=== PATIENT | female | born 1970 | race Caucasian/White ===

== ENCOUNTER 2017-03-19 07:01 | Emergency (ER) | payer OTHER, MEDICAID ==
[~2017-03-19] VITALS: Ht 157.5 cm; Wt 101.5 kg
[~2017-03-19 07:01] MED LIST: BENAZEPRIL; CRESTOR; CYMBALTA
[2017-03-19] MEDS ORDERED: IBUPROFEN 600MG TABLET PO ONE (09:15)
[2017-03-19 09:28] VITALS: BP 122/68
== END 2017-03-19 09:29 | disposition home or self-care (01) ==
LOC: ER 07:57
DX: H60.92 Unspecified otitis externa, left ear (principal); H66.92 Otitis media, unspecified, left ear; M79.602 Pain in left arm; I10 Essential (primary) hypertension; E78.00 Pure hypercholesterolemia, unspecified; E11.9 Type 2 diabetes mellitus without complications; Z96.659 Presence of unspecified artificial knee joint; Z98.890 Other specified postprocedural states
CPT/HCPCS: 73030; 73080; 73110; 99284